=== PATIENT | female | born 1995 | race Caucasian/White ===

== ENCOUNTER 2018-09-21 01:37 | Emergency (ER) | payer MEDICAID ==
[~2018-09-21] VITALS: Ht 160 cm; Wt 102.1 kg
[2018-09-21 01:45] VITALS: BP 138/91
--- NOTE | 2018-09-21 02:05 | NUR ---
PT TAKEN TO BED 2
--- NOTE | 2018-09-21 02:06 | NUR ---
PT BIB FRIEND C/O GUM BLEEDING AFTER TOOTH EXTRACTION X1 WEEK AGO. PT STATES SHE HAD HER TOOTH REMOVED A WEEK AGO, DISENTERGRATING STITCHES PLACE, PT STATES TO STITCHES FALLING OUT RECENTLY, PT STATES TO LAUGHING AND GUM WERE TOOTH WAS EXTRACTED STARTED BLEEDING. PT STATES TO USING PACKING TO STOP BLEEDING W/O RELIEF. GUM HAD MODERATE BLEEDING AT THIS TIME, PRESSURE APPLIED. LEFT SIDE OF CHEEK HAS MILD SWELLING AND REDNESS. DENIES N/V/D, LOC, CP OR SOB. PT STATES 0/10 PAIN AT THIS TIME. LUNG SOUNDS CLEAR THROUGH OUT. BOWEL SOUNDS ACTIVE X4 QUAD. PT IN BED; BED IN LOWER LOCKED POSITION. ER MADE AWARE OF PT STATUS. PMH--DENIES RX--DENIES
--- NOTE | 2018-09-21 02:06 | NUR ---
Dr. Harmon evaluating patient at bedside.
[2018-09-21] MEDS ORDERED: SILVER NITRATE APPLICATOR 1 EA SWAB TP ONE (02:57)
--- NOTE | 2018-09-21 04:55 | NUR ---
Patient discharged with v/s stable. Written and verbal after care instructions given and explained. Patient verbalized understanding. Ambulatory with steady gait. All questions addressed prior to discharge. Advised to follow up with PMD.
[2018-09-21 05:06] VITALS: BP 130/80
== END 2018-09-21 04:55 | disposition home or self-care (01) ==
LOC: MED 01:37
DX: K91.840 Postprocedural hemorrhage of a digestive system organ or structure following a digestive system procedure (principal)
CPT/HCPCS: 99283